=== PATIENT | female | born 2000 | race African-American/Black ===

== ENCOUNTER 2020-02-19 09:17 | Outpatient (CLI) | payer OTHER ==
--- NOTE | 2020-02-19 10:05 | ULT ---
EXAM: Transabdominal and transvaginal pelvic ultrasound with Doppler PROVIDED CLINICAL HISTORY: Pelvic pain COMPARISON: None FINDINGS: The uterus measures approximately 7.7 x 4.9 x 3.4 cm and demonstrates a normal sonographic appearance . Uterine endometrial thickness is approximately 7 mm. Cervical nabothian cysts are seen. Right ovary measures approximately 2.8 x 1.6 x 1.3 cm and demonstrates a normal sonographic appearanc e. Left ovary measures approximately 1.8 x 3.1 x 1.6 cmdemonstrates a normal sonographic appearance. Grayscale and color Doppler sonography with spectral analysis of the ovarian waveforms demonstrates n ormal flow bilaterally. There is no evidence for free significant pelvic fluid. IMPRESSION: Unremarkable pelvic ultrasound.
== END 2020-02-19 09:18 | disposition home or self-care (01) ==
LOC: BICULT 09:17
PROVIDERS: ATTEND Family Medicine
DX: R10.2 Pelvic and perineal pain (principal)
CPT/HCPCS: 76856